=== PATIENT | female | born 1935 | race Caucasian/White ===

== ENCOUNTER → 2017-01-15 | Outpatient (CLI) | payer OTHER ==
[~2017-01-15] MED LIST: AMOXICILLIN/POTASSIU PO; APAP500 PO; ASPIRIN EC81 M1 OR; ASPIRIN325 PO; AZITHROMYCIN 2250 MG PO; BACTRIM 400-801 EACH PO; BENADRYL25 MG PO; BENEFIBER1 G1 PO; CEFTIN 250 MG250 MG PO; CENTRUM TABLET1 TAB OR; CEPACOL SORE T1 EAC7 PO; COZAAR 50 MG TA50 M2 PO; CRANBERRY400 MG PO; CRESTOR10 MG PO; DELSYM COU30 MG/5 M1 PO; DELSYM30 MG/5 ML PO; DITROPAN XL10 MG PO; DOXYCYCLINE 10100 MG; FIBER CON PO; FISHOIL OR; FOSAMAX 70 MG T70 M1 OR; HYDROCHLOROTHIA25 M2 PO; LORTAB 5 MG/5001 TA1 OR; LOSARTAN-HCTZ1 EAC1 PO; LYRICA 75 MG CA75 MG OR; MAGNESIUM-VIT1 EACH PO; MI ACID SUSPEN355 ML PO; MOBIC15 MG PO; MUCINEX TA600 MG/TA2 PO; NEXIUM40 MG PO; NORCO 5-325 TA1 EACH PO; NORVASC5 MG PO; OMEGA-31000 M1 PO; PHILLIPS' COLO1 EACH PO; SIMVASTATIN40 MG OR; SUPARTZ; TOPROL XL50 MG PO; TRAMADOL 50 MG50 MG PO; TRIGLIDE160 M1 PO; TRILIPIX135 MG OR; TRILIPIX135 MG PO; TYLENOL325 MG PO; VITAMIN D-32000 UNIT OR; VITAMIN D1000 UNIT PO; WOMEN S ONE DA PO; ZYRTEC 10 MG TA10 MG PO; ZYRTEC10 MG PO
--- NOTE | ~2017-01-15 | EEG ---
[facility] [place] [address] [place] [address] ELECTROENCEPHALOGRAM Name: MARTI GEORGE Room #: REG [facility].#: [id number] Admission: 01/15/17 Attend Phys: Laith Hawley MD Discharge: Date of : 33 Report #: [id number] THIS REPORT FOR: //name// CC: Laith Hawley DATE OF SERVICE: 01/15/2017 This patient is being evaluated for altered mental status. EEG was done by placing the electrodes by standard 10-20 system of electrode placement. Both referential and sequential montages were used for recording. Background activity in this patient's EEG is about 10 Hz and 30-35 microvolts. The patient goes to sleep; that is associated with bilateral slowing, and a few vertex sharp waves and sleep spindles which were symmetrical. Photic stimulation is unremarkable. Throughout the record, no active epileptiform activity was noticed. IMPRESSION: This patient's EEG is unremarkable for the patient's age. Thank you very much for this referral. By: [id number] Andre Machado MD /nt
== END ==
LOC: NEURO 09:02
DX: G45.9 Transient cerebral ischemic attack, unspecified (principal); H53.9 Unspecified visual disturbance; R41.82 Altered mental status, unspecified

== ENCOUNTER → 2017-02-28 | Outpatient (CLI) | payer OTHER | LOC: BC 01:24 | DX: R92.0 Mammographic microcalcification found on diagnostic imaging of breast (principal) ==

== ENCOUNTER → 2017-03-25 | Outpatient (CLI) | payer OTHER ==
[~2017-03-25] VITALS: Ht 162.6 cm; Wt 95.4 kg
[~2017-03-25] MED LIST changes: +LOSARTAN POTAS100 MG PO; +NEURONTIN 300300 M1 PO
--- NOTE | ~2017-03-25 | HPC ---
[facility] [place] [address] PAIN MANAGEMENT CONSULTATION Name: MARTI GEORGE Asa Room #: REG [facility].#: [id number] Admission: 03/25/17 Attend Phys: Jonh Jose DO Discharge: Date of : 33 Report #: [id number] THIS REPORT FOR: //name// CC: Laith Jose The patient is an 81-year-old female, prior seen in the pain clinic nearly a year ago, 05/28/2016, diagnosed with right hip joint pain, component of DJD, and was given a steroid injection at that time. She returns to pain clinic today noting she had dramatic relief following that injection, reports nearly 100% relief about 10 months, pain is starting to recur. She is getting ready to travel to [place] for a vacation with her family. She notes subjective pain is exacerbated with standing and walking. Stairs are quite problematic. She has had multiple TIAs, history of intracranial bleed, she has some cognitive impairment, has a difficult time putting a number on her pain. PHYSICAL EXAMINATION: Shows an 81-year-old female, BMI is 36.1 kg/m2. Blood pressure is modestly elevated at 149/92, pulse is 93, and respirations are 20. Alert and oriented to person, place, and time, judged to be a reasonable historian despite some memory concerns. Rises from chair using armrest. Pain is primarily in the right hip. The lower extremity strength is symmetric. Positive pain with rotation of the right hip, left hip is fairly unremarkable. Gait is modestly antalgic favoring the right leg. Rotation of the right leg exacerbates pain, left leg is unremarkable. Negative Aleksander test. There are no recent diagnostic studies available, though imaging from her injection a year ago did show some cortical changes and narrowing of the joint space. IMPRESSION: 1. Symptomatic degenerative joint disease, right hip. 2. Right hip joint pain secondary to degenerative joint disease. RECOMMENDATION: 1. Repeat a right hip joint injection under fluoroscopy today. 2. I have taken the liberty of renewing Meloxicam 15 mg 1 tablet p.r.n. pain to be used on a nondaily basis, specifically days when she is more physically active and on vacation. Follow up simply as needed. PROCEDURE: Right hip joint injection under fluoroscopy. PROCEDURE NOTE: After written informed consent was obtained, the patient was taken to the fluoroscopy suite and placed in supine position. Skin overlying the right groin was cleansed with ChloraPrep. Skin wheal with Xylocaine was raised. Sterile drape was applied. A 22-gauge stylet [place] [address] PAIN MANAGEMENT CONSULTATION Name: MARTI GEORGE Asa Room #: REG [facility] Calvin#: [id number] Admission: 03/25/17 Attend Phys: Jonh Jsoe DO Discharge: Date of : 33 Report #: [id number] the proximal aspect of the femoral head in the acetabular joint. Initial injection showed spread outside joint Needle was repositioned, and the second injection similarly showed the same spread of dye outside of the joint. Needle was repositioned third time a little more distal on the femoral head , this time injection showed good spread within the joint, arthrogram was noted. This was followed with 40 mg of triamcinolone plus 2 mL of 0.5% preservative-free bupivacaine. Needle was removed, the area was cleansed, Band-Aids applied. The patient was monitored for an appropriate period of time, discharged in good and stable condition, told to use ice to the area today, watch for signs of infection including hyperpyrexia, fever, chills, swelling or local redness. The patient is to report to the ER if that occurs, we do not suspect any those issues. Discharged in good and stable condition. Follow up is as needed. <ELECTRONICALLY SIGNED> By: Jonh Jose DO 03/27/17 1246 [id number] Jonh Jose DO /nt
[2017-03-25 09:11] VITALS: BP 149/92
== END | disposition home or self-care (01) ==
LOC: PAIN 06:36
DX: M16.11 Unilateral primary osteoarthritis, right hip (principal); Z68.36 Body mass index [BMI] 36.0-36.9, adult

== ENCOUNTER → 2018-04-04 | Outpatient (CLI) | payer OTHER ==
[~2018-04-04] VITALS: Ht 160 cm; Wt 84.6 kg
[~2018-04-04] MED LIST changes: +HYDROCODONE-AP1 EAC6 PO; +MAGNESIUM PO; +PLAVIX 75 MG TA75 M1 PO; +PROBIOTIC1 EAC1 PO; +PROTONIX40 M1 PO; +ZANTAC 150MG T150 MG PO
--- NOTE | ~2018-04-04 | HPC ---
[facility] [place] [address] [place] [address] PAIN MANAGEMENT CONSULTATION Name: MARTI GEORGE [facility] Room #: REG [facility]ilo.#: [id number] Admission: 04/04/18 Attend Phys: Jonh Jose DO Discharge: Date of : 33 Report #: [id number] THIS REPORT FOR: //name// CC: Laith Jose The patient is a delightful 82-year-old female. I have given her 2 hip joint injections initially May 2016, last injection 03/25/2017. She noted near 100% relief about 10 months, pain has been gradually begun to recur without antecedent trauma and overuse. She notes pain is in the right hip. Rates it a 7 on VAS, exacerbated with standing, walking and bending. Physical exam is unchanged, now an 82-year-old female, BMI is 33.1 kilograms per meter squared. Blood pressure 135/67, pulse 105, respirations 16. Rises from chair easily. Gait is modestly antalgic. Does have significant pain with rotation of the right hip. 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 This has healed nicely. I suggested she ask Dr. Maco Bullock, her orthopedic surgeon who did the total knee arthroplasty about right total hip arthroplasty next time pain begins to recur. Today, we will repeat the right hip joint injection under fluoroscopy. ASSESSMENT: Symptomatic right hip osteoarthritis. PROCEDURE NOTE: Right hip joint injection under fluoroscopy. PROCEDURE: After written informed consent was obtained, the patient was taken to fluoroscopy suite, placed in supine position. Skin overlying the right hip was cleansed with ChloraPrep. Skin wheal with Xylocaine was raised. A 22-gauge stylet needle was placed to contact proximal femur within the acetabular joint. Negative aspiration was accomplished. 1 mL of Omnipaque was injected, which showed spread within the joint. This was followed with 40 mg triamcinolone plus 2 mL of 0.5% preservative-free bupivacaine. Needle was removed. The area was cleansed. Band-Aid applied. The patient was told to watch the area for signs of infection. Follow up simply as needed. Fluoroscopy time was under 10 seconds. <ELECTRONICALLY SIGNED> By: Jonh Jose DO 04/07/18 0710 [id number] Jonh Jose DO /nt
[2018-04-04 10:22] VITALS: BP 135/67
== END | disposition home or self-care (01) ==
LOC: PAIN 06:59
DX: M16.11 Unilateral primary osteoarthritis, right hip (principal); G89.29 Other chronic pain; Z98.890 Other specified postprocedural states; Z79.899 Other long term (current) drug therapy; Z96.651 Presence of right artificial knee joint; Z87.891 Personal history of nicotine dependence; Z88.8 Allergy status to other drugs, medicaments and biological substances; Z79.82 Long term (current) use of aspirin; Z79.891 Long term (current) use of opiate analgesic

== ENCOUNTER → 2019-02-25 | Outpatient (CLI) | payer OTHER | LOC: RAD 13:42 | DX: Z12.31 Encounter for screening mammogram for malignant neoplasm of breast (principal) ==

== ENCOUNTER → 2019-03-03 | Outpatient (CLI) | payer OTHER | LOC: RAD 04:06 | DX: C50.911 Malignant neoplasm of unspecified site of right female breast (principal); N63.10 Unspecified lump in the right breast, unspecified quadrant ==

== ENCOUNTER → 2019-06-10 | Outpatient (CLI) | payer OTHER ==
[~2019-06-10] VITALS: Ht 160 cm; Wt 93.3 kg
[~2019-06-10] MED LIST changes: +DICLOFENAC SODI75 MG PO; +LASIX 20 MG TAB20 MG PO
--- NOTE | ~2019-06-10 | HPC ---
[facility] [place] [address] [place] [address] PAIN MANAGEMENT CONSULTATION Name: MARTI GEORGE [facility] Room #: REG [facility] Kerr.#: [id number] Admission: 06/10/19 Attend Phys: Miky Jose DO Discharge: Date of : 33 Report #: [id number] THIS REPORT FOR: //name// CC: MACO Jose DATE OF SERVICE: 06/10/2019 REFERRING PHYSICIAN: Maco Bullock M.D. CHIEF COMPLAINT: Right hip pain. HISTORY OF PRESENT ILLNESS: As you know, the patient is an 83-year-old female who returns today in followup visit reporting pain level of 10/10. We have not seen this patient since 03/2018 where she was treated with right hip injection under fluoroscopic guidance. She returns today in followup visit reporting a pain score of 10/10. States pain is in the right hip, it is chronic in nature, aching in sensation, exacerbated with walking, getting in and out of a chair, walking upstairs, improves with medications and seated position. She returns today in followup visit to discuss the possibility of beginning to gain authorization for injection therapy. She returns indicating that she remains on Plavix, which precludes us from undergoing the procedure today. She wishes to begin the authorization and to come off her Plavix in preparation for the intra-articular hip injection next week. She denies new injury or trauma that may have led to symptom occurrence. ALLERGIES: METFORMIN, AMOXICILLIN, LEVOFLOXACIN AND CELECOXIB. CURRENT MEDICATIONS: Acetaminophen 325 mg every 4 hours p.r.n. for pain, tramadol 50 mg q. 4 hours p.r.n. for pain, diclofenac sodium 75 mg b.i.d., furosemide 20 mg once a day, Plavix 75 mg once a day, hydrocodone/acetaminophen 5/325 one tab every 6 hours p.r.n. for pain, magnesium oxide 250 mg once a day, ranitidine 150 mg twice a day, lactobacillus 1 capsule per day, pantoprazole 40 mg per day, gabapentin 300 mg t.i.d., losartan 100 mg once a day, amlodipine 5 mg per day, multivitamin 1 tab per day, fenofibrate 160 mg once a day, omega-3 fish oil 1 tab per day, cranberry 500 mg once a day, aspirin 325 mg per day, lovastatin 10 mg per day, oxybutynin 10 mg in the morning, cetirizine 10 mg per day. IMAGING: No new imaging available. PQRS: The patient has known arthritic changes of the lumbar spine, low back. No rheumatoid arthritis. She is placing pain intensity 10/10. She is a fall risk, has not had a fall in last 3 months. She is on Plavix. She is treated for hypertension. She is not on chronic opioids, but does have a [address] [address] PAIN MANAGEMENT CONSULTATION Name: MARTI GEORGE [facility] [id number] Admission: 06/10/19 Attend Phys: Miky Jose DO Discharge: Date of : 33 Report #: [id number] risk for opioid addiction based on our assessment tool. Pain impact score 28/70 moderate interference of daily activities secondary to pain. PHYSICAL EXAMINATION: VITAL SIGNS: Blood pressure 140/82, pulse 101, respiratory rate 16 and unlabored. The patient is 96% on room air. Height 5 feet 3 inches tall, weight 205.8 pounds and BMI calculated 36.4. GENERAL: Well-developed, well-nourished, well-hydrated exogenously obese 83-year-old female appearing her stated age. She is placing pain today at 10. HEENT: Normocephalic, atraumatic. Pupils equal, round, reactive to light. EXTREMITIES: Show no clubbing, no cyanosis, and no edema. LUNGS: Clear, no wheeze, rhonchi or rales. CARDIOVASCULAR: Regular. No appreciable gallop or rub. ABDOMEN: Soft, obese. MUSCULOSKELETAL: There is some palpatory tenderness over the right hip when compared to left. Any movement of the hip is exacerbating pain. Aleksander's test is positive. Modified Gaenslen's positive for axial low back pain. Lower extremity strength is weakened on the right secondary to pain. This appears to be giveaway strength. Muscle bulk and tone appears equal and symmetrical. ASSESSMENT: 1. Right hip pain. 2. Right hip osteoarthritis. 3. Chronic intractable pain. PLAN: 1. The patient has returned today in followup visit with recurrent right hip pain. She underwent a intra-articular hip injection with Dr. Jonh Jose in 03/2018 with good effects. Unfortunately, her symptoms have begun to return. She denies new injury, new trauma that may have led to symptom occurrence. She returns today requesting authorization to undergo right intraarticular hip injection. She has also understanding that she has to discontinue her Plavix for 7 days in preparation for the procedure. She cannot undergo the procedure today. She has not stopped her anticoagulant. Authorization was easily obtained, and we were prepared to undergo the procedure, but the patient will have to remain off the Plavix for 7 days. We have planned to have the patient return in 1 week. 2. No medication changes made at today's visit. The patient will continue current medical therapy as previously prescribed. 3. We will see the patient back in followup visit to undergo right intraarticular hip injection after she has been off Plavix for 7 days. She needs to obtain authorization from the prescribing physician of her Plavix to make sure she can come off this medication safely. She will begin this authorization today and confirm with our clinic that she can come off the medication for the injection. We have set a tentative schedule for next week [address] [address] PAIN MANAGEMENT CONSULTATION Name: MARTI GEORGE [facility] Room #: REG [facility].#: [id number] Admission: 06/10/19 Attend Phys: Miky Jose DO Discharge: Date of : 33 Report #: [id number] for the patient to undergo the procedure. 4. We will see the patient back in followup visit next week to undergo a right intra-articular hip injection. We wish to thank Dr. Bullock for the referral of the patient to our clinic. We will keep you apprised of her response to treatment as we address the osteoarthritic changes of the right hip noted at previous evaluations. Again, we wish to thank Dr. Bullock for the opportunity to see the patient in consultation. By: [id number] Miky Jose DO /nt
[2019-06-10 09:56] VITALS: BP 140/82
--- NOTE | 2019-06-10 09:59 | NUR ---
Pain Clinic Assessment: 1. History of Osteoarthritis: Not Applicable History of Rheumatoid Arthritis: Not Applicable 2. Height: 5 ft. 3 in. 160.0 cm. Weight: 205.6 lb. oz. 93.260 kg. Patient's BMI: 36.4 3. Vital Signs: BP: 140/82 Pulse: 101 Resp: 16 Temp: 02 Sat: 96 ECG Mon: 4. Pain Intensity: 10 5. Fall Risk: Dizziness: N Needs help standing or walking: N Fallen in the last 3 months: N Fall risk comments: 6. Patient on Blood Thinner: Clopidogrel Bisulf(Plavix 7. History of Hypertension: Y 8. Opioid Therapy greater than 6 weeks: N Opiate Contract Signed: 9. Risk Assessment Tool Provided: LOW RISK / 10. Functional Assessment Tool: 11. Recreational Drug Use: Never Drug Type: Tobacco Use: Former Smoker Tobacco Type: Amount or Packs/day: How Many Years: Alcohol Use: No Frequency: Quant:
== END ==
LOC: PAIN 09:35
DX: M16.11 Unilateral primary osteoarthritis, right hip (principal); G89.4 Chronic pain syndrome; Z88.8 Allergy status to other drugs, medicaments and biological substances; Z88.0 Allergy status to penicillin; Z79.899 Other long term (current) drug therapy

== ENCOUNTER → 2019-06-17 | Outpatient (CLI) | payer OTHER ==
[~2019-06-17] VITALS: Ht 160 cm; Wt 93.3 kg
--- NOTE | ~2019-06-17 | HPC ---
[facility] [place] [address] [place] [address] PAIN MANAGEMENT CONSULTATION Name: MARTI GEORGE [facility] Room #: REG [facility] Kerr.#: [id number] Admission: 06/17/19 ������������������ Attend Phys: Miky Jose DO Discharge: ������������������ Date of : 33 Report #: [id number] THIS REPORT FOR: //name// CC: Maco Jose DATE OF SERVICE: 06/17/2019 REFRRING PHYSICIAN: Maco Bullock MD CHIEF COMPLAINT: Right hip pain. HISTORY OF PRESENT ILLNESS: As you know, the patient is an 83-year-old female who returned in followup visit reporting hip pain at 10/10. She was lost to follow up visit since 03/2018 where she was treated for right hip pain secondary to osteoarthritis. She returns today in followup visit, off her anticoagulant in preparation for a right intra-articular hip injection under fluoroscopic guidance. The patient has been off the medication for 7 days. She returns reporting pain today at a level of 8/10. Pain is elicited with standing from a seated position, walking and weightbearing. ALLERGIES: METFORMIN, AMOXICILLIN, LEVOFLOXACIN AND CELECOXIB. CURRENT MEDICATIONS: See chart. IMAGING: No new imaging available. PQRS: The patient has known arthritic changes of the lumbar spine, bilateral hips and low back. No rheumatoid arthritis. She is placing pain intensity today at 8/10. She is a fall risk, but has not had a fall in last 3 months. She is on Plavix, but discontinued the medication 7 days prior to today's procedure. She is treated for hypertension. She is not on chronic opioid. She has a low opioid addiction potential based on our assessment tool. Functional assessment/pain impact of 28/70 indicating moderate interference of daily activities secondary to pain. PHYSICAL EXAMINATION: VITAL SIGNS: Blood pressure 152/87, pulse 100, respiratory rate 18 and unlabored. The patient is 96% on room air. Height 5 feet 3 inches tall, weight 205.8 pounds, BMI calculated 36.5. GENERAL: Well-developed, well-nourished, well-hydrated exogenously obese 83-year-old female appearing stated age, pain is rated at 8/10. HEENT: Normocephalic, atraumatic. Pupils are equal, round, reactive to light. Speech is fluent. EXTREMITIES: Show no clubbing, no cyanosis, and no edema. [facility] [address] [place] [address] PAIN MANAGEMENT CONSULTATION Name: MARTI GEORGE [facility] Room #: REG [facility]CynthiaEdwardCynthia#: [id number] Admission: 06/17/19 ������������������ Attend Phys: Miky Jose DO Discharge: ������������������ Date of : 33 Report #: [id number] MUSCULOSKELETAL: The patient has pain elicited with standing from seated position. Gait is antalgic favoring right lower extremity over left. Seated straight leg raising is negative. Supine straight leg raising is only positive for right hip pathology. Aleksander's test is positive on the right. ASSESSMENT: 1. Right hip pain. 2. Right hip osteoarthritis. 3. Chronic intractable pain. PLAN: 1. The patient has returned today in followup visit having discontinued her Plavix in preparation for right intraarticular hip injection under fluoroscopic guidance. The patient has been advised of the risks and benefits of this procedure. These risks include but are not necessarily limited to bleeding, bruising, infection, worsening pain, no relief of pain, also risk of temporary or permanent muscle weakness, temporary or permanent nerve damage, possible joint destruction and . The patient states understood and wished to proceed. 2. No medication changes made at today's visit. The patient will restart her Plavix this evening and continue Plavix as directed. 3. We will see the patient back in followup visit on an as needed basis for possible next in the series of right intraarticular hip injections. The patient was advised if she does wish to undergo the procedure. She will need to discontinue her Plavix 7 days prior to that procedure date. DESCRIPTION OF PROCEDURE: Right intraarticular hip injection under fluoroscopic guidance. After obtaining written consent, the patient was taken back to fluoroscopy suite, placed in a supine position. The image intensifier was then brought into position over the right hip and AP imaging was obtained. The area was then prepped and draped in aseptic fashion using chlorhexidine. A sterile marker was then placed over the injection site. Once AP positioning was confirmed, a 27-gauge 1-1/4 inch needle was then used to anesthetize skin and subcutaneous tissue with 2 mL of 1% lidocaine. A 22-gauge 3-1/2 inch spinal needle was then advanced under fluoroscopic guidance towards the proximal head of the femur under direct fluoroscopic imaging. Needle was advanced until reaching the proximal head of the humerus then retracted 1 mm. After negative aspiration for heme, 0.5 mL of Omnipaque injected. An excellent right hip arthrogram was then obtained. After negative aspiration for heme, 4 mL of a solution containing 1 mL, 40 mg per mL, 40 mg total triamcinolone and 3 mL of bupivacaine 0.5% injected slowly. Needle retracted long term, flushed with 1 mL of bupivacaine 0.5% then removed. Sterile bandage placed over injection site. There were no new motor deficits present in [facility] [address] [place] [address] PAIN MANAGEMENT CONSULTATION Name: MARTI GEORGE [facility] Room #: REG CLI [facility]#: [id number] Admission: 06/17/19 ������������������ Attend Phys: Miky Jose DO Discharge: ������������������ Date of : 33 Report #: [id number] the lower extremity following procedure. The patient tolerated the procedure well, carefully escorted to recovery room in stable condition. No apparent complication. After meeting discharge criteria, the patient discharged home. ��������������������������������������������� ���������������������������������������� By: ��������������������������������������������� [id number] Miky Jose DO /nt
[2019-06-17 11:27] VITALS: BP 152/87
--- NOTE | 2019-06-17 11:39 | NUR ---
Pain Clinic Assessment: 1. History of Osteoarthritis: Not Applicable History of Rheumatoid Arthritis: Not Applicable 2. Height: 5 ft. 3 in. 160.0 cm. Weight: 205.8 lb. oz. 93.350 kg. Patient's BMI: 36.5 3. Vital Signs: BP: 152/87 Pulse: 100 Resp: 18 Temp: 02 Sat: 96 ECG Mon: 4. Pain Intensity: 8 5. Fall Risk: Dizziness: N Needs help standing or walking: N Fallen in the last 3 months: N Fall risk comments: 6. Patient on Blood Thinner: Clopidogrel Bisulf(Plavix 7. History of Hypertension: Y 8. Opioid Therapy greater than 6 weeks: N Opiate Contract Signed: 9. Risk Assessment Tool Provided: LOW RISK /3 10. Functional Assessment Tool: 11. Recreational Drug Use: Never Drug Type: Tobacco Use: Former Smoker Tobacco Type: Amount or Packs/day: How Many Years: Alcohol Use: No Frequency: Quant:
== END ==
LOC: PAIN 06:53
DX: M16.11 Unilateral primary osteoarthritis, right hip (principal); G89.29 Other chronic pain; Z88.8 Allergy status to other drugs, medicaments and biological substances; M19.90 Unspecified osteoarthritis, unspecified site; Z79.01 Long term (current) use of anticoagulants; Z87.891 Personal history of nicotine dependence; Z98.890 Other specified postprocedural states; Z79.899 Other long term (current) drug therapy

== ENCOUNTER → 2019-09-15 | Outpatient (CLI) | payer OTHER | LOC: RAD 09:33 | DX: C50.911 Malignant neoplasm of unspecified site of right female breast (principal) ==

== ENCOUNTER → 2019-10-20 | Outpatient (CLI) | payer OTHER | LOC: SJCVC 11:50 | DX: I25.10 Atherosclerotic heart disease of native coronary artery without angina pectoris (principal); I10 Essential (primary) hypertension; E78.00 Pure hypercholesterolemia, unspecified; M19.90 Unspecified osteoarthritis, unspecified site; J44.9 Chronic obstructive pulmonary disease, unspecified; K21.0 Gastro-esophageal reflux disease with esophagitis; Z90.49 Acquired absence of other specified parts of digestive tract; Z79.82 Long term (current) use of aspirin; Z79.899 Other long term (current) drug therapy ==

== ENCOUNTER → 2020-03-18 | Outpatient (CLI) | payer OTHER | LOC: RAD 12:30 | DX: Z12.31 Encounter for screening mammogram for malignant neoplasm of breast (principal); N64.89 Other specified disorders of breast; Z98.890 Other specified postprocedural states ==

== ENCOUNTER → 2020-04-28 | Outpatient (CLI) | payer OTHER | LOC: SJCVCIMAG 09:48 | PROVIDERS: ATTEND Internal Medicine Cardiovascular Disease | DX: I07.1 Rheumatic tricuspid insufficiency (principal); I25.10 Atherosclerotic heart disease of native coronary artery without angina pectoris; I10 Essential (primary) hypertension; J44.9 Chronic obstructive pulmonary disease, unspecified; E78.00 Pure hypercholesterolemia, unspecified; Z79.899 Other long term (current) drug therapy; Z87.891 Personal history of nicotine dependence ==

== ENCOUNTER → 2020-10-31 | Outpatient (CLI) | payer OTHER | LOC: SJCVC 14:55 | PROVIDERS: ATTEND Internal Medicine Cardiovascular Disease | DX: R00.0 Tachycardia, unspecified (principal); R94.31 Abnormal electrocardiogram [ECG] [EKG]; I25.10 Atherosclerotic heart disease of native coronary artery without angina pectoris; I10 Essential (primary) hypertension; E78.00 Pure hypercholesterolemia, unspecified; R60.9 Edema, unspecified; M19.90 Unspecified osteoarthritis, unspecified site; J44.9 Chronic obstructive pulmonary disease, unspecified; E78.5 Hyperlipidemia, unspecified; K21.9 Gastro-esophageal reflux disease without esophagitis; Z86.73 Personal history of transient ischemic attack (TIA), and cerebral infarction without residual deficits; Z82.49 Family history of ischemic heart disease and other diseases of the circulatory system; Z79.82 Long term (current) use of aspirin; Z79.899 Other long term (current) drug therapy; Z87.891 Personal history of nicotine dependence ==

== ENCOUNTER → 2021-03-20 | Outpatient (CLI) | payer OTHER | LOC: BC 09:55 | PROVIDERS: ATTEND Internal Medicine | DX: Z12.31 Encounter for screening mammogram for malignant neoplasm of breast (principal) ==